=== PATIENT | male | born 1960 | race American Indian/Alaskan Native ===

== ENCOUNTER 2017-10-20 19:47 | Emergency (ER) | payer OTHER ==
[2017-10-20 19:52] VITALS: BP 139/88
--- NOTE | 2017-10-20 20:35 | Emergency Department Report ---
- General Chief Complaint: Upper Respiratory Infection Stated Complaint: COUGH,RASH Time Seen by Provider: 10/20/17 20:05 Source: patient Mode of arrival: Ambulatory Limitations: No Limitations - History of Present Illness Initial Comments: Mr. Mallory is a healthy 57-year-old male presents with cold upper respiratory infection. He's had cough productive sputum white. He's also had a hoarse voice and nasal congestion. No fever. Symptoms are improving. for Several months, he has had hyperpigmented rash on his extremities and neck. He was told by his that he had eczema. MD Complaint: cough, nasal congestion -: week(s) (1) Severity: mild Worsens With: nothing - Related Data Previous Rx's Medication Instructions Recorded Last Taken Type Hydrocortisone 1% [Hydrocortisone 1 applicatio TP TID #1 tube 10/20/17 Unknown Rx 1% CREAM] Loratadine 10 mg PO DAILY 14 Days #14 tablet 10/20/17 Unknown Rx predniSONE [Deltasone] 3 tab PO QDAY 5 Days #15 tab 10/20/17 Unknown Rx Allergies Allergy/AdvReac Type Severity Reaction Status Date / Time No Known Allergies Allergy Verified 10/20/17 19:51 ED Review of Systems ROS: Stated complaint: COUGH,RASH Other details as noted in HPI Constitutional: denies: fever, malaise ENT: denies: ear pain, throat pain, hearing loss Respiratory: cough Cardiovascular: denies: chest pain Gastrointestinal: denies: abdominal pain, nausea Skin: rash ED Past Medical Hx - Past Medical History Previous Medical History?: No - Surgical History Past Surgical History?: Yes Additional Surgical History: Ear surgery external cosmetic - Social History Smoking Status: Never Smoker Substance Use Type: Alcohol - Medications Home Medications: Home Medications Medication Instructions Recorded Confirmed Last Taken Type Hydrocortisone 1% [Hydrocortisone 1 applicatio TP TID #1 tube 10/20/17 Unknown Rx 1% CREAM] Loratadine 10 mg PO DAILY 14 Days #14 tablet 10/20/17 Unknown Rx predniSONE [Deltasone] 3 tab PO QDAY 5 Days #15 tab 10/20/17 Unknown Rx ED Physical Exam - General Limitations: No Limitations General appearance: alert, in no apparent distress - Head Head exam: Present: atraumatic, normocephalic - Eye Eye exam: Present: normal appearance - ENT ENT exam: Present: mucous membranes moist - Neck Neck exam: Present: normal inspection - Respiratory Respiratory exam: Present: normal lung sounds bilaterally. Absent: respiratory distress, wheezes, rales, rhonchi - Cardiovascular Cardiovascular Exam: Present: regular rate, normal rhythm, normal heart sounds. Absent: systolic murmur, diastolic murmur, rubs, gallop - GI/Abdominal GI/Abdominal exam: Present: soft, normal bowel sounds. Absent: distended, tenderness, guarding, rebound - Rectal Rectal exam: Present: deferred - Extremities Exam Extremities exam: Present: normal inspection - Back Exam Back exam: Present: normal inspection - Neurological Exam Neurological exam: Present: alert, oriented X3 - Psychiatric Psychiatric exam: Present: normal affect, normal mood - Skin Skin exam: Present: warm, dry, intact, normal color, other (hyperpigmented scaly rash small patches in the upper arms, large patch of right neck ). Absent : rash ED Course Vital Signs 10/20/17 19:46 Temperature 99.0 F Pulse Rate 67 Respiratory 16 Rate Blood Pressure 139/88 O2 Sat by Pulse 98 Oximetry ED Medical Decision Making - Medical Decision Making Mr. Mallory presents with resolving URI. Likely component of allergic rhinitis. Prescribed prednisone which will address both cough and eczema. Also prescribed loratadine and hydrocortisone cream.. Critical care attestation.: If time is entered above; I have spent that time in minutes in the direct care of this critically ill patient, excluding procedure time. ED Disposition Clinical Impression: URI (upper respiratory infection), Eczema Disposition: [id number] TO HOME OR SELFCARE Is pt being admited?: No Does the pt Need Aspirin: No Condition: Stable Instructions: Upper Respiratory Infection (ED), Eczema (ED) Prescriptions: Hydrocortisone 1% [Hydrocortisone 1% CREAM] 1 applicatio TP TID #1 tube Loratadine 10 mg PO DAILY 14 Days #14 tablet predniSONE [Deltasone] 3 tab PO QDAY 5 Days #15 tab Time of Disposition: 20:37
== END 2017-10-20 21:05 | disposition home or self-care (01) ==
LOC: ED 19:47
DX: J06.9 Acute upper respiratory infection, unspecified (principal); L30.9 Dermatitis, unspecified
CPT/HCPCS: 99282